=== PATIENT | male | born 1985 | race Asian ===

== ENCOUNTER 2019-02-21 00:33 | Emergency (ER) | payer OTHER ==
[~2019-02-21] VITALS: Ht 190.5 cm; Wt 81.8 kg
[2019-02-21 00:38] VITALS: BP 160/97
[2019-02-21] MEDS ORDERED: BACITRACIN 0.9 GM PACKET OINTMENT TP ONE (02:00)
== END 2019-02-21 02:11 | disposition home or self-care (01) ==
LOC: EMS 00:33
DX: S40.262A Insect bite (nonvenomous) of left shoulder, initial encounter (principal); F17.290 Nicotine dependence, other tobacco product, uncomplicated; W57.XXXA Bitten or stung by nonvenomous insect and other nonvenomous arthropods, initial encounter; Y93.89 Activity, other specified; Y92.89 Other specified places as the place of occurrence of the external cause; Y99.8 Other external cause status